=== PATIENT | female | born 2000 | race Hispanic/Latino ===

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

== ENCOUNTER → 2020-07-27 | Outpatient (CLI) | payer OTHER ==
--- NOTE | 2020-07-27 12:27 | Diagnostic Imaging Report ---
Thyroid ultrasound CPT code: 66380 History: Thyroid nodule Comparison: None Findings: The thyroid echotexture is normal. Vascularity is normal. The right lobe measures 5.2 x 1.6 x 1.9 cm. The left lobe measures 4.9 x 1.3 x 1.9 cm. The isthmus measures 0.4 cm. Nodules (measurements are AP, transverse, craniocaudal): Right Lobe: 0.3 cm lower pole hypoechoic nodule without associated calcification. Left Lobe: 0.3 cm left midpole nodule with coarse internal calcification. Isthmus: No cystic mass or discrete solid nodule identified. Lymph Nodes: No cervical lymph nodes are identified. Parathyroids: Not visualized. IMPRESSION: 0.3 cm right and left lower pole of thyroid nodules are not suspicious. Signed by: Jacobo Marin MD on 07/27/2020 12:24 PM
== END ==
LOC: US 07:39
PROVIDERS: ATTEND Internal Medicine Endocrinology, Diabetes & Metabolism
DX: E04.1 Nontoxic single thyroid nodule (principal)
CPT/HCPCS: 76536